=== PATIENT | female | born 1990 | race Caucasian/White ===

== ENCOUNTER 2017-03-24 22:40 | Emergency (ER) | payer BC, MEDICAID ==
[~2017-03-24] VITALS: Ht 165.1 cm; Wt 68.0 kg
[2017-03-24 22:50] VITALS: BP_SYST 135
--- NOTE | 2017-03-24 22:50 | NUR ---
Patient triaged and placed in waiting room. VSS and patient appears in no acute distress at this time. Accompanied by mother, awaiting available bed, and MD notified of need for MSE.
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
--- NOTE | 2017-03-24 23:00 | NUR ---
Patient to ER bed 1 to gown for evaluation. Side rails up. Report given to Trevor WADDELL.
--- NOTE | 2017-03-24 23:35 | NUR ---
ED MD Peak at bedside for medical evaluation.
[2017-03-25 00:02] LABS: BILIRUBIN,URINE NEGATIVE (NEGATIVE); BLOOD, URINE 3+ (NEGATIVE); CLARITY/URINE SLIGHTLY CLOUDY (CLEAR); COLOR,URINE YELLOW (YELLOW); GLUCOSE,URINE NEGATIVE (NEGATIVE); KETONES,URINE NEGATIVE (NEGATIVE); LEUKOCYTE ESTERASE ,URINE 1+ (NEGATIVE); PH,URINE 7.5 (5.0-8.0); PROTEIN URINE 2+ (NEGATIVE)
[2017-03-25 00:03] LABS: NITRITE, URINE NEGATIVE (NEGATIVE); UROBILINOGEN,URINE 0.2 (0.2-1.0)
[2017-03-25 00:04] LABS: BACTERIA,URINE FEW /HPF (None Seen); MUCUS,URINE 1+ /LPF (None Seen); RBC,URINE 80-100 /HPF (0-3); WBC,URINE 20-50 /HPF (0-3)
[2017-03-25 00:30] VITALS: BP_SYST 135
[2017-03-25] MEDS ORDERED: HYDROcodone/ACETAMIN 7.5-325 MG TAB PO ONE (00:30)
[2017-03-25] MEDS ORDERED: CEPHALEXIN 500 MG CAPSULE PO ONE (00:30)
--- NOTE | 2017-03-25 00:30 | NUR ---
Patient given written and verbal discharge instructions and verbalizes understanding. ER MD discussed with patient the results and treatment provided. Patient in stable condition. ID arm band removed. Rx of Keflex and Harmony given. Patient educated on pain management and to follow up with PMD. Pain Scale 0/10. Opportunity for questions provided and answered.
== END 2017-03-25 00:30 | disposition home or self-care (01) ==
LOC: SED 22:40
DX: N12 Tubulo-interstitial nephritis, not specified as acute or chronic (principal)
CPT/HCPCS: 81000-TC; 81025; 87086; 99284

== ENCOUNTER 2017-11-11 06:02 | Emergency (ER) | payer BC, MEDICAID ==
[~2017-11-11] VITALS: Ht 165.1 cm; Wt 68.0 kg
[2017-11-11 06:08] VITALS: BP_SYST 125
--- NOTE | 2017-11-11 06:08 | NUR ---
Patient to ER bed 7 to gown for evaluation. Side rails up. Report given to NADIRA CATALAN.
--- NOTE | 2017-11-11 06:10 | NUR ---
Patient AAOx3, ambulatory. Patient states being "5 weeks and having spotting of blood when attempting to wipe after urinating". Patient denies pain at this time. Patient states bleeding is scant and is "pink" in color. Patient denies any other complaints.
--- NOTE | 2017-11-11 06:27 | NUR ---
ER Dr. Estrada at bedside examining patient.
[2017-11-11 07:01] LABS: BASOPHILS # (AUTO) 0.1 K/uL (0.0-0.2); EOSINOPHILS # (AUTO) 0.1 K/uL (0.0-0.4); EOSINOPHILS % (AUTO) 0.9 % (0.0-4.0); HEMATOCRIT 37.4 % (36-48); HEMOGLOBIN 12.6 g/dL (12.0-16.0); LYMPHOCYTES # (AUTO) 2.3 K/uL (1.0-5.5); LYMPHOCYTES % (AUTO) 38.6 % (20.5-51.5); MEAN CORPUSCULAR HEMOGLOBIN 32 pg (27-31); MEAN CORPUSCULAR HGB CONC 34 % (32-36); MEAN CORPUSCULAR VOLUME 94 fL (79.0-98.0); MONOCYTES # (AUTO) 0.5 K/uL (0.0-1.0); MONOCYTES % (AUTO) 7.7 % (1.7-9.3); NEUTROPHILS # (AUTO) 2.9 K/uL (1.8-7.7); NEUTROPHILS % (AUTO) 51.8 % (40.0-70.0); PLATELET COUNT (AUTO) 289 K/uL (130-430); RED BLOOD CELL COUNT(AUTO) 3.96 MIL/uL (4.2-6.2); RED CELL DISTRIBUTION WIDTH 12.4 % (9.0-15.0); WHITE BLOOD COUNT (AUTO) 5.9 K/uL (4.8-10.8)
--- NOTE | 2017-11-11 07:09 | NUR ---
Endorsed care of patient to day shift RN.
--- NOTE | 2017-11-11 07:11 | NUR ---
Pt is resting in bed comfortably with no noted distress and discomfort.
--- NOTE | 2017-11-11 07:15 | NUR ---
Pt went to US in stable condition.
--- NOTE | 2017-11-11 07:48 | NUR ---
Pt returned from US in stable condition
[2017-11-11 07:59] LABS: BILIRUBIN,URINE NEGATIVE (NEGATIVE); CLARITY/URINE SL CLOUDY (CLEAR); COLOR,URINE YELLOW (YELLOW); GLUCOSE,URINE NEGATIVE (NEGATIVE); KETONES,URINE NEGATIVE (NEGATIVE); LEUKOCYTE ESTERASE ,URINE 2+ (NEGATIVE); NITRITE, URINE NEGATIVE (NEGATIVE); PROTEIN URINE NEGATIVE (NEGATIVE); UROBILINOGEN,URINE 0.2 (0.2-1.0)
[2017-11-11 08:01] LABS: BLOOD, URINE TRACE (NEGATIVE)
[2017-11-11 08:05] LABS: BACTERIA,URINE MODERATE /HPF (None Seen)
[2017-11-11 08:06] LABS: MUCUS,URINE 1+ /LPF (None Seen)
--- NOTE | 2017-11-11 08:26 | NUR ---
Patient given written and verbal discharge instructions and verbalizes understanding. ER MD discussed with patient the results and treatment provided. Patient in stable condition. ID arm band removed. Rx of macrobid given. Patient educated on pain management and to follow up with PMD. Pain Scale 0. Opportunity for questions provided and answered.
[2017-11-11 08:27] VITALS: BP_SYST 120
== END 2017-11-11 08:27 | disposition home or self-care (01) ==
LOC: SED 06:02
DX: O20.0 Threatened abortion (principal); O23.41 Unspecified infection of urinary tract in pregnancy, first trimester; Z3A.01 Less than 8 weeks gestation of pregnancy
CPT/HCPCS: 36415; 76801; 76817; 81000-TC; 81025; 84702-TC; 85025; 86900; 86901; 87086; 99285

== ENCOUNTER 2018-05-17 13:00 | Observation (INO) | payer BC, MEDICAID ==
[~2018-05-17] VITALS: Ht 165.1 cm; Wt 83.9 kg
== END 2018-05-17 16:30 | disposition home or self-care (01) ==
LOC: SPU 13:00
PROVIDERS: ADMIT Specialist; ATTEND Specialist
DX: O42.913 Preterm premature rupture of membranes, unspecified as to length of time between rupture and onset of labor, third trimester (principal); Z3A.31 31 weeks gestation of pregnancy
CPT/HCPCS: 76805; 81002; G0378

== ENCOUNTER 2019-03-06 21:22 | Emergency (ER) | payer MEDICAID ==
[~2019-03-06] VITALS: Ht 165.1 cm; Wt 74.8 kg
[2019-03-06 21:53] VITALS: BP_SYST 103
[2019-03-07] MEDS ORDERED: NACL 0.9% 1,000 ML IV ONE (01:00)
[2019-03-07] MEDS ORDERED: ACETAMINOPHEN 500 MG TABLET PO ONE (01:00)
[2019-03-07 02:42] LABS: BILIRUBIN,URINE NEGATIVE (NEGATIVE); BLOOD, URINE NEGATIVE (NEGATIVE); CLARITY/URINE CLEAR (CLEAR); COLOR,URINE YELLOW (YELLOW); GLUCOSE,URINE NEGATIVE (NEGATIVE); KETONES,URINE NEGATIVE (NEGATIVE); LEUKOCYTE ESTERASE ,URINE NEGATIVE (NEGATIVE); NITRITE, URINE NEGATIVE (NEGATIVE); PH,URINE 5.5 (5.0-8.0); PROTEIN URINE TRACE (NEGATIVE)
[2019-03-07 02:48] LABS: RBC,URINE 0-3 /HPF (0-3)
[2019-03-07 02:49] LABS: BACTERIA,URINE MODERATE /HPF (None Seen)
[2019-03-07 03:04] VITALS: BP_SYST 108
== END 2019-03-07 03:04 | disposition home or self-care (01) ==
LOC: SED 21:22
DX: O99.281 Endocrine, nutritional and metabolic diseases complicating pregnancy, first trimester (principal); E86.0 Dehydration; O99.611 Diseases of the digestive system complicating pregnancy, first trimester; K52.9 Noninfective gastroenteritis and colitis, unspecified; Z3A.08 8 weeks gestation of pregnancy
CPT/HCPCS: 81000; 81025; 87086; 87186; 96360; 99283; J7030

== ENCOUNTER 2021-08-22 11:06 | Emergency (ER) | payer BC, MEDICAID, OTHER ==
[~2021-08-22] VITALS: Ht 165.1 cm; Wt 79.4 kg
[2021-08-22 11:33] VITALS: BP_SYST 122
--- NOTE | 2021-08-22 12:55 | NUR ---
Pt to bed 1 for evaluation.
--- NOTE | 2021-08-22 13:00 | NUR ---
Pt AAO and ambulatory reporting feeling light headed today and had 6 episodes of vomiting prior to arrival. Pt reports nausea and headache pain. Pt reports pain scale 8/10. Pt denies having any prior medical history. V/S are stable.
--- NOTE | 2021-08-22 13:23 | NUR ---
Dr. De La Vega at bedside to assess.
[2021-08-22] MEDS ORDERED: MAG HYDROX/AL HYDROX/SIMETH 30 ML, DICYCLOMINE HCL 20 MG, LIDOCAINE VISCOUS 2% 15ML (PO... PO ONE ×3 (13:30)
[2021-08-22] MEDS ORDERED: NACL 0.9% 1,000 ML IV ONE (13:30)
[2021-08-22] MEDS ORDERED: METOCLOPRAMIDE HCL 10 MG/2 ML VIAL IVP ONE (13:30)
--- NOTE | 2021-08-22 14:00 | NUR ---
# 20 gauge angiocath placed to RIGHT AC. Use of asceptic technique. Opsite placed over site. Blood return noted. Blood for lab drawn from site. Flushed with 10 cc of normal saline. No evidence of infiltration noted. Patient tolerated well.
[2021-08-22 14:27] LABS: BILIRUBIN,URINE NEGATIVE (NEGATIVE); BLOOD, URINE NEGATIVE (NEGATIVE); CLARITY/URINE CLEAR (CLEAR); COLOR,URINE YELLOW (YELLOW); GLUCOSE,URINE NEGATIVE (NEGATIVE); KETONES,URINE NEGATIVE (NEGATIVE); NITRITE, URINE NEGATIVE (NEGATIVE); PROTEIN URINE NEGATIVE (NEGATIVE); UROBILINOGEN,URINE 0.2 (0.2-1.0)
[2021-08-22 14:31] LABS: HEMATOCRIT 38.9 % (36-48); HEMOGLOBIN 13.3 g/dL (12.0-16.0); WHITE BLOOD COUNT (AUTO) 7.7 K/uL (4.8-10.8)
[2021-08-22 14:31] LABS: LEUKOCYTE ESTERASE ,URINE 1+ (NEGATIVE)
[2021-08-22 14:32] LABS: BACTERIA,URINE FEW /HPF (None Seen); MUCUS,URINE 2+ /LPF (None Seen); RBC,URINE 0-3 /HPF (0-3)
[2021-08-22 14:35] LABS: MEAN CORPUSCULAR HEMOGLOBIN 31 pg (27-31); MEAN CORPUSCULAR HGB CONC 34 % (32-36); MEAN CORPUSCULAR VOLUME 91 fL (79.0-98.0); PLATELET COUNT (AUTO) 348 K/uL (130-430); RED BLOOD CELL COUNT(AUTO) 4.27 MIL/uL (4.2-6.2); RED CELL DISTRIBUTION WIDTH 14.7 % (9.0-15.0)
[2021-08-22 14:37] LABS: CREATININE 0.74 mg/dL (0.55-1.30); POTASSIUM 3.8 mmol/L (3.5-5.1)
[2021-08-22 14:43] LABS: ALBUMIN 4.2 g/dL (3.4-4.8); TOTAL BILIRUBIN 0.5 mg/dL (0.0-1.0)
--- NOTE | 2021-08-22 14:53 | NUR ---
DR RANKIN AT BEDSIDE
[2021-08-22 14:59] LABS: BAND % (MANUAL) 0 % (0-6); BASOPHILS % (MANUAL) 0 % (0-2); EOSINOPHILS % (MANUAL) 0 % (0-7); LYMPHOCYTES % (MANUAL) 24 % (20-46); MONOCYTES % (MANUAL) 7 % (0-11)
[2021-08-22] MEDS ORDERED: ONDA-8 TL (15:24)
--- NOTE | 2021-08-22 15:33 | NUR ---
Patient given written and verbal discharge instructions and verbalizes understanding. ER MD discussed with patient the results and treatment provided. Patient in stable condition. ID arm band removed. IV catheter removed intact and dressing applied, no active bleeding. Rx of ZOFRAN given. Patient educated on pain management and to follow up with PMD. Pain Scale 0/10 Opportunity for questions provided and answered. Medication side effect fact sheet provided.
[2021-08-22 15:34] VITALS: BP_SYST 120
== END 2021-08-22 15:33 | disposition home or self-care (01) ==
LOC: SED 11:06
DX: R11.2 Nausea with vomiting, unspecified (principal); R10.13 Epigastric pain; R53.1 Weakness; Z79.899 Other long term (current) drug therapy
CPT/HCPCS: 36415; 80053; 81000; 83690; 85007; 85027; 87086; 96360; 99283; J2001; J2765; J7030

== ENCOUNTER 2022-02-24 16:05 | Emergency (ER) | payer OTHER ==
[~2022-02-24] VITALS: Ht 162.6 cm; Wt 74.8 kg
[2022-02-24 16:05] VITALS: BP_SYST 124
[~2022-02-24 16:05] MED LIST: ONDA-8 TL
--- NOTE | 2022-02-24 16:09 | NUR ---
Patient triaged and placed in waiting room. VSS and patient appears in no acute distress at this time. Accompanied by SELF, awaiting available bed, and MD notified of need for MSE.
--- NOTE | 2022-02-24 16:10 | NUR ---
Pt brought by self, A&Ox4, pt presents to ER with episode of headache/ dizziness / tingling of extremities , also N/V x1 , pt denies SOB, skin pink and warm , cap refill <3, respirations even and unlabored, pt states symptoms are improving at this time, will cont to monitor.
--- NOTE | 2022-02-24 17:34 | NUR ---
Alejandro chisholm in [facility] - 02/24/22 at 1934 by SDEDAFJ TUAN
--- NOTE | 2022-02-24 17:34 | NUR ---
Pt left without been seen
--- NOTE | 2022-02-24 17:36 | NUR ---
UNABLE TO LOCATE PT IN WAITING ROOM
== END 2022-02-24 17:34 | disposition left against medical advice (07) ==
LOC: SED 16:05
DX: R42 Dizziness and giddiness (principal); R20.0 Anesthesia of skin; Z53.21 Procedure and treatment not carried out due to patient leaving prior to being seen by health care provider